=== PATIENT | female | born 1945 | race Caucasian/White ===

== ENCOUNTER → 2017-03-23 | Outpatient (CLI) | payer OTHER ==
--- NOTE | 2017-03-23 11:48 | RAD ---
Indication: Short of air for 6 months, current smoker Technique: Axial images and coronal and sagittal reformatted images are provided. No comparison is available. One or more of the following individualized dose reduction techniques were utilized for this examination: 1. Automated exposure control 2. Adjustment of the mA and/or kV according to patient size 3. Use of iterative reconstruction technique Findings: There is minimal atelectasis in the left lung base. There is no consolidation. 3 mm nodule is noted in the superior segment right lower lobe, thin axial image 149. There is no additional worrisome pulmonary nodule. There is no pleural effusion. Central airways are patent. There is minimal atheromatous disease in the ascending aorta and minimal coronary artery calcification. Heart is not enlarged. There is no definite hilar or mediastinal adenopathy. There is a right thyroid nodule measuring 8 mm. There is probably a small hiatal hernia. There is no adrenal mass. There are areas of cortical scarring in the left kidney. There are degenerative changes in the spine. Impression: 1. 3 mm pulmonary nodule in the right lower lobe. Per Fleischner Society, 12 month follow-up can be considered in this high-risk patient. 2. Small hiatal hernia.
--- NOTE | 2017-03-23 13:58 | RAD ---
Indication: Renal insufficiency. Abnormal labs. Technique: Renal ultrasound was performed. It was technically difficult given body habitus and bowel gas. Findings: Right kidney measures at least 10.3 cm in length and the left 10.0 cm. There is a hypoechoic potential mass in the right kidney with increased color flow measuring up to 2.6 cm in size. Echogenic nonshadowing foci in the left kidney may represent nonobstructing stones. Renal cortex is thinned bilaterally. Bladder is unremarkable with both urine jets documented. Incidentally, there is cholelithiasis. Impression: 1. Potential solid mass in the right kidney for which renal mass protocol CT is recommended. 2. Renal cortical thinning bilaterally. 3. Echogenic nonshadowing foci within the left kidney could represent nonobstructing stones. 4. Cholelithiasis.
== END | disposition home or self-care (01) ==
LOC: CT 10:01
PROVIDERS: ATTEND Nurse Practitioner Family
DX: N28.9 Disorder of kidney and ureter, unspecified (principal); K80.20 Calculus of gallbladder without cholecystitis without obstruction; I25.10 Atherosclerotic heart disease of native coronary artery without angina pectoris; I70.0 Atherosclerosis of aorta; J98.11 Atelectasis; R91.1 Solitary pulmonary nodule; E04.9 Nontoxic goiter, unspecified; M47.899 Other spondylosis, site unspecified; K44.9 Diaphragmatic hernia without obstruction or gangrene; F17.200 Nicotine dependence, unspecified, uncomplicated
CPT/HCPCS: 71250; 76770

== ENCOUNTER → 2017-04-01 | Outpatient (CLI) | payer OTHER ==
--- NOTE | 2017-04-01 15:16 | RAD ---
Indication: Thyroid nodule noted on recent CT. Correlation is made with recent CT from 03/23/2017. The right lobe the thyroid measures 5.8 x 1.5 x 1.5 cm and the left lobe measures 5.2 x 1.4 x 1.4 cm. There are multiple nodules identified throughout both lobes of the thyroid gland. The largest nodule on the right is in the lower pole measuring 2.2 x 1.3 x 1.3 cm. This does contain a central calcification. There is also a peripherally calcified nodule just cephalad to this measuring approximately 1.0 x 0.9 cm. Largest nodule on the left measures 1.2 x 0.6 x 0.7 cm. There are several subcentimeter nodules present as well. The isthmus is 4 mm in thickness. Impression: Multinodular thyroid, suggestive of a multinodular goiter. The dominant nodule is located in the lower pole of the right lobe. Consideration could be given to performance of fine needle aspiration of this nodule. If this is not performed, follow-up ultrasound in 6 months is recommended to confirm stability.
== END | disposition home or self-care (01) ==
LOC: US 13:54
PROVIDERS: ATTEND Nurse Practitioner Family
DX: E04.2 Nontoxic multinodular goiter (principal); F17.200 Nicotine dependence, unspecified, uncomplicated
CPT/HCPCS: 76536

== ENCOUNTER → 2017-06-08 | Outpatient (CLI) | payer OTHER ==
[~2017-06-08] MED LIST: IOHEXOL 300 MG/ML 75 ML VIAL. IV ONE
[2017-06-08 10:01] LABS: CREATININE 1.4 mg/dL (0.6-1.0); GFR 37.2
== END | disposition home or self-care (01) ==
LOC: CT 09:14
PROVIDERS: ATTEND Nurse Practitioner Family
DX: R93.8 Abnormal findings on diagnostic imaging of other specified body structures (principal)
CPT/HCPCS: 36415; 82565; 84520; Q9967

== ENCOUNTER → 2020-04-11 | Outpatient (CLI) | payer MEDICARE, OTHER ==
--- NOTE | 2020-04-11 12:37 | RAD ---
EXAM: DUAL ENERGY X-RAY ABSORPTIOMETRY (DEXA). HISTORY: Postmenopausal screening. FINDINGS: The lowest measured T-score is -2.1 in the right femoral neck, based on a bone mineral dens ity of 0.681 g/cm^2. Refer to the worksheets for full detail. No comparison examinations are available. IMPRESSION: 1. Low bone mass. Bone mineral density yields a T-score between -1.0 and -2.5. Fracture risk is incre ased. 2. FRAX report: Not calculated. METHODOLOGY: Dual energy x-ray absorptiometry was performed to measure bone mineral density. The foll owing analysis is based on the 2019 Official Positions of the International Society for Clinical Dens itometry: Measurements of the hips and the average of L1-L4 are preferred. When the spine and/or hip cannot be feasibly measured or interpreted, or in the setting of hyperparathyroidism, distal radial bone minera l density may be measured. The lumbar spine T-score is based on the average bone mineral density of L1-L4. In the setting of art ifact or anatomic abnormality, some lumbar levels may be excluded, and the remaining levels used for calculation. A single lumbar level is not used for diagnosis, and if only a single level is available for assessment, another anatomic site will be used to assign a diagnosis. The hip T-score is based on the bone mineral density measurement of the femoral neck or total proxima l femur of either side, whichever is lowest. Bilateral mean values are not used for diagnosis. The forearm T-score is derived from 33% of the distal radius of the nondominant forearm. Electronically signed by: Faustina Jordan MD (04/11/2020 12:34 PM) [id number]
--- NOTE | 2020-04-11 14:56 | RAD ---
DATE: 04/11/2020 9:50 AM EXAM: MAMMO MARTHA SCREENING BILATERAL HISTORY: Screening COMPARISON: 01/17/2019, 11/16/2017 Bilateral CC and MLO views of the breasts were performed. Bilateral breast tomosynthesis was performed in CC and MLO projections. This study was interpreted with the benefit of Computerized Aided Detection (CAD). FINDINGS: Breast Density: HETERO The breast parenchyma Is heterogeneously dense, which could reduce sensitivity of mammography. Breast parenchyma level C No suspicious masses, microcalcifications or architectural distortion is present to suggest malignancy in either breast. The visualized axillae are unremarkable. IMPRESSION: No mammographic evidence of malignancy. BI-RADS CATEGORY: 1 NEGATIVE RECOMMENDED FOLLOW-UP: 12M 12 MONTH FOLLOW-UP Annual screening mammography is recommended, unless clinically indicated sooner based on symptoms or change in physical exam. PQRS compliance statement: Patient information was entered into a reminder system with a target due date for the next mammogram. Mammography is a sensitive method for finding small breast cancers, but it does not detect them all and is not a substitute for careful clinical examination. A negative mammogram does not negate a clinically suspicious finding and should not result in delay in biopsying a clinically suspicious abnormality. "Our facility is accredited by the [employer] Mammography Program."
== END ==
LOC: DXRAD 09:32
PROVIDERS: ATTEND Family Medicine
DX: Z12.31 Encounter for screening mammogram for malignant neoplasm of breast (principal); Z00.00 Encounter for general adult medical examination without abnormal findings; M81.0 Age-related osteoporosis without current pathological fracture
CPT/HCPCS: 77063; 77067; 77080

== ENCOUNTER → 2020-10-22 | Outpatient (CLI) | payer MEDICARE ==
--- NOTE | 2020-10-22 11:45 | RAD ---
EXAM: Thyroid sonogram. HISTORY: Multinodular goiter. TECHNIQUE: Sonographic imaging of the thyroid was performed. COMPARISON: 04/01/2017. FINDINGS: The right there are lobe measures 5.5 x 1.4 x 1.8 cm. The left thyroid lobe measures 5.0 x 1.6 x 1.4 cm. The thyroid isthmus measures 3.4 mm in thickness. The thyroid parenchyma is diffusely h eterogeneous and contains multiple nodules. For reference purposes, the largest nodule within the right thyroid lobe is seen within the upper mid zone measuring 1.1 x 0.8 x 0.4 cm. This nodule is hypoechoic and demonstrates internal blood flow. T here is a solid isoechoic nodule with peripheral calcification within the mid right thyroid lobe candi uring 0.9 x 0.9 x 0.8 cm. There are multiple additional smaller right thyroid nodules and colloid cys ts. For reference purposes, the largest nodule on the left is within the upper mid zone measuring 1.1 x 0 .8 x 0.8 cm. This is hypoechoic and appears to be spongiform. There are additional tiny left thyroid nodules and colloid cysts. IMPRESSION: 1. Dominant heterogeneous hypoechoic solid nodule within the right thyroid lobe measuring 1.1 x 0.8 x 0.4 cm. This is similar compared to the prior study when allowing for differences in imaging techniq ue. The long-term stability favors benignity. TI-RADS Category 4. Continued follow-up is recommended for category 4 nodules of this size. 2. Dominant spongiform nodule within the left thyroid lobe measuring 1.1 x 0.8 x 0.8 cm. This is lucia lar compared to the prior study with allowing for differences in imaging technique. The long-term sta bility favors benignity. TI-RADS Category 3. Continued follow-up is recommended for category 3 nodule s of this size. 3. Stable peripherally calcified nodule within the right thyroid lobe measuring 9 mm. TI-RADS Categor y 4. Continued follow-up is recommended for category 4 nodules of this size. 4. Diffusely heterogeneous thyroid containing multiple small nodules and colloid cysts. This is simil ar compared to the prior study. Electronically signed by: Faustina Jordan MD (10/22/2020 11:42 AM) [id number]
== END ==
LOC: US 10:58
PROVIDERS: ATTEND Nurse Practitioner Adult Health
DX: E04.2 Nontoxic multinodular goiter (principal)
CPT/HCPCS: 76536